=== PATIENT | female | born 1990 | race Caucasian/White ===

== ENCOUNTER 2021-05-28 19:07 | Emergency (ER) | payer MEDICAID ==
--- NOTE | 2021-05-28 19:26 | NUR ---
ER examinined patient
--- NOTE | 2021-05-28 19:38 | NUR ---
PATIENT REFUSED TRIAGE, REFUSED TO ANSWER QUESTIONS. PATIENT MEDICALLY CLEARED BY ER MD. DISCHARGE INSTRUCTIONS SIGNED BY . PATIENT WAS INSIDE THE POLICE CAR, UNDER CUSTODY.
== END 2021-05-28 19:38 ==
LOC: SED 19:07
DX: Z02.89 Encounter for other administrative examinations (principal)